=== PATIENT | male | born 1955 | race Caucasian/White ===

== ENCOUNTER → 2016-09-26 | Outpatient (CLI) | payer OTHER | END | disposition home or self-care (01) | LOC: CARD 09:48 | PROVIDERS: ATTEND Family Medicine | DX: I50.30 Unspecified diastolic (congestive) heart failure (principal); I37.1 Nonrheumatic pulmonary valve insufficiency; R94.39 Abnormal result of other cardiovascular function study | CPT/HCPCS: 93017; 93306 ==

== ENCOUNTER 2016-10-14 10:28 | Day surgery (SDC) | payer OTHER ==
[~2016-10-14] VITALS: Ht 175.3 cm; Wt 77.3 kg
[~2016-10-14 10:28] MED LIST: ALPR0.254 PO; ATOR10TA PO; OMEP-110 PO
[2016-10-14] MEDS ORDERED: SODIUM CHLORIDE 0.9% 1,000 ML IV SCH (10:37)
[2016-10-14] MEDS ORDERED: ONDANSETRON 2MG/ML, 2ML IVPush PRN (11:00)
[2016-10-14] MEDS ORDERED: ACETAMINOPHEN 325 MG TABLET PO PRN (11:00)
[2016-10-14] MEDS ORDERED: ZOLPIDEM 5MG TABLET PO PRN (11:00)
[2016-10-14] MEDS ORDERED: ASPIRIN 325 MG TABLET EC PO ONE (11:00)
[2016-10-14] MEDS ORDERED: FENTANYL PF 100 MCG/2ML ONE (12:15)
[2016-10-14] MEDS ORDERED: LIDOCAINE 2%, 20ML ONE (12:15)
[2016-10-14] MEDS ORDERED: MIDAZOLAM 1 MG/ML, 5ML ONE (12:15)
== END 2016-10-14 16:17 | disposition home or self-care (01) ==
LOC: CACL 10:28
PROVIDERS: ATTEND Internal Medicine Cardiovascular Disease
DX: R93.1 Abnormal findings on diagnostic imaging of heart and coronary circulation (principal); E78.5 Hyperlipidemia, unspecified; F41.9 Anxiety disorder, unspecified; K21.9 Gastro-esophageal reflux disease without esophagitis; Z72.89 Other problems related to lifestyle; Z90.49 Acquired absence of other specified parts of digestive tract; Z98.890 Other specified postprocedural states; Z82.49 Family history of ischemic heart disease and other diseases of the circulatory system
CPT/HCPCS: 36415; 80048; 85025; 85610; 85730; 93458; 99156; C1760; C1894; J2250; J3010; J3490; Q9967